=== PATIENT | male | born 1990 | race Caucasian/White ===

== ENCOUNTER 2023-08-08 19:42 | Emergency (ER) | payer MEDICAID ==
[~2023-08-08] VITALS: Ht 193 cm; Wt 149.7 kg
[2023-08-08 19:54] VITALS: BP 141/87; PULSE 74; RESP 18; TEMP 97.7; O2SAT 95
[2023-08-08 20:14] VITALS: O2SAT 98
[2023-08-08] MEDS: HYDROcodone/APAP 5/325 MG 1 TAB TAB PO ONE (20:50)
[2023-08-08] MEDS ORDERED: HYDR-5191 PO (22:10)
[2023-08-08] MEDS ORDERED: IBUP-2213 PO (22:19)
[2023-08-08 22:44] VITALS: BP 136/80; PULSE 65; RESP 17; TEMP 98.1; O2SAT 99
== END 2023-08-08 22:44 | disposition home or self-care (01) ==
LOC: MED 19:42
DX: S62.396A Other fracture of fifth metacarpal bone, right hand, initial encounter for closed fracture (principal); M20.021 Boutonniere deformity of right finger(s); Z79.899 Other long term (current) drug therapy; W18.09XA Striking against other object with subsequent fall, initial encounter; Y93.89 Activity, other specified; Y92.89 Other specified places as the place of occurrence of the external cause; Y99.8 Other external cause status
CPT/HCPCS: 73130; 99283